=== PATIENT | male | born 1965 | race Caucasian/White ===

== ENCOUNTER → 2017-01-15 | Outpatient (CLI) | payer OTHER ==
--- NOTE | 2017-01-27 08:55 | SLEEPCENT ---
DATE OF STUDY: 01/15/2017 REFERRING PROVIDER: Dr. Mitesh Cardenas INTERPRETATION: Nocturnal polysomnography was performed for the evaluation of sleep apnea syndrome symptoms in this patient with excessive daytime sleepiness, insomnia, snoring, observed apnea, gasping respirations, morning headaches, and nonrestorative sleep. A total of 8 hours and 11 minutes of data was reviewed with a 169 minutes of sleep identified. Sleep latency was 53 minutes. No slow wave sleep or rapid eye movement (REM) sleep was identified. Sleep efficiency was markedly decreased at 34.8%. Electrocardiogram (EKG) showed normal sinus rhythm with an average heart rate of 64 beats per minute. Speeding and slowing was noted surrounding some respiratory events. There were 86 respiratory events identified of 10 seconds in duration or longer for an apnea-hypopnea index (AHI) of 30.5. The events were predominantly obstructive hypopneas/apneas. RERA index was 5, giving a total respiratory disturbance index (RDI) of 35.5. Mean oxygen saturation for the study was 93% with a minimum recorded value of 88%. Arousal index was 26.6 with approximately half breathing related. Periodic limb movement index was elevated at 32.7. IMPRESSION: 1. Obstructive sleep apnea, severe. 2. Periodic limb movements, moderate. 3. Significant sleep inefficiency. RECOMMENDATIONS: Recommend the patient return to the sleep disorder center for determination of pressure therapy. Pending that intervention, alcohol and sedative usage should be avoided and care should be taken when operating motor vehicles.
== END ==
LOC: M SLEEP 19:20
PROVIDERS: ATTEND Internal Medicine Pulmonary Disease
DX: G47.33 Obstructive sleep apnea (adult) (pediatric) (principal); G47.61 Periodic limb movement disorder

== ENCOUNTER → 2017-02-19 | Outpatient (CLI) | payer OTHER | LOC: M SLEEP 19:47 | DX: G47.33 Obstructive sleep apnea (adult) (pediatric) (principal) ==

== ENCOUNTER → 2021-11-26 | Outpatient (CLI) | payer OTHER ==
[2021-11-26 10:13] LABS: BASO % 0.8 % (0.0-1.0); EOS # 0.1 10^3/uL (0.0-0.5); EOS % 2.6 % (0.0-3.0); HEMATOCRIT 45.3 % (42.0-52.0); HEMOGLOBIN 16.1 g/dl (13.5-17.5); LYMPH # 1.8 10^3/uL (1.5-5.0); MEAN CORPUSCULAR HEMOGLOBIN 32.6 pg (27.0-33.0); MEAN CORPUSCULAR HGB CONC 35.5 g/dl (32.0-36.5); MEAN CORPUSCULAR VOLUME 91.7 fl (80.0-96.0); MONO # 0.5 10^3/uL (0.0-0.8); MONO % 9.8 % (2.0-8.0); NEUTROPHILS # 2.5 10^3/uL (1.5-8.5); NEUTROPHILS % 50.4 % (36.0-66.0); PLATELET COUNT, AUTOMATED 141 10^3/uL (150-450); RED BLOOD COUNT 4.94 10^6/uL (4.30-6.10)
[2021-11-26 10:24] LABS: INR 0.93; PARTIAL THROMBOPLASTIN TIME 27.5 SECONDS (24.8-34.2); PROTHROMBIN TIME 12.7 SECONDS (12.5-14.5)
[2021-11-26 10:54] LABS: ALBUMIN 4.1 GM/DL (3.2-5.2); ALT/SGPT 201 U/L (12-78); BILIRUBIN,TOTAL 1.3 MG/DL (0.2-1.0); BLOOD UREA NITROGEN 18 MG/DL (7-18); C REACTIVE PROTEIN QUANTITATIV 0.48 MG/DL (0.00-0.30); CALCIUM LEVEL 9.8 MG/DL (8.5-10.1); CARBON DIOXIDE LEVEL 31 MEQ/L (21-32); CHLORIDE LEVEL 102 MEQ/L (98-107); CREATININE FOR GFR 1.23 MG/DL (0.70-1.30); FERRITIN 818 NG/ML (26-388); GLOMERULAR FILTRATION RATE > 60.0 (>56); GLUCOSE, FASTING 101 MG/DL (70-100); IRON (FE) 198 UG/DL (65-175); PERCENT SATURATION 58.9 % (19.7-50.0); POTASSIUM SERUM 3.7 MEQ/L (3.5-5.1); SODIUM LEVEL 137 MEQ/L (136-145); TOTAL IRON BINDING CAPACITY 336 UG/DL (250-450); TOTAL PROTEIN 7.6 GM/DL (6.4-8.2)
[2021-11-27 10:11] LABS: ANTINUCLEAR ANTIBODIES DIRECT Negative (Negative)
== END ==
LOC: M LAB 09:14
PROVIDERS: ATTEND Internal Medicine Gastroenterology
DX: R94.5 Abnormal results of liver function studies (principal)

== ENCOUNTER → 2021-12-15 | Outpatient (CLI) | payer OTHER | LOC: M RAD 10:19 | PROVIDERS: ATTEND Internal Medicine Gastroenterology | DX: R94.5 Abnormal results of liver function studies (principal) ==

== ENCOUNTER 2024-12-05 12:16 | Emergency (ER) | payer OTHER ==
[~2024-12-05] VITALS: Ht 182.9 cm; Wt 123.3 kg
[2024-12-05] MEDS ORDERED: HYDR1CAP25 PO (12:24)
[2024-12-05] MEDS ORDERED: DULO1CAP6 PO (12:24)
[2024-12-05] MEDS ORDERED: BUSP15TA48 PO (12:24)
[2024-12-05] MEDS ORDERED: TEST200I14 IM (12:24)
[2024-12-05] MEDS ORDERED: LOSA25TA13 PO (12:24)
[2024-12-05] MEDS ORDERED: ISOVUE-370 76% 100 ML VIAL As Ordered ONE (14:52)
[2024-12-05] MEDS: ONDANSETRON 4MG/2ML VIAL IV ONE (15:35)
[2024-12-05] MEDS: MORPHINE 2 MG/ML 1 ML VIAL IV ONE (15:36)
[2024-12-05 16:47] VITALS: BP 162/79; TEMP 97.3
[2024-12-05] MEDS: CLINDAMYCIN 900 MG in IV 1 EA IV ONE (16:50)
[2024-12-05 16:53] VITALS: O2SAT 97
== END 2024-12-05 16:54 | disposition short-term general hospital (02) ==
LOC: M ED 12:16
DX: S02.401A Maxillary fracture, unspecified side, initial encounter for closed fracture (principal); W22.8XXA Striking against or struck by other objects, initial encounter; Y92.009 Unspecified place in unspecified non-institutional (private) residence as the place of occurrence of the external cause; Y93.9 Activity, unspecified; Y99.9 Unspecified external cause status; F32.9 Major depressive disorder, single episode, unspecified; M47.812 Spondylosis without myelopathy or radiculopathy, cervical region; Z88.0 Allergy status to penicillin
CPT/HCPCS: 70450; 70486; 70498; 72125; 80047; 96365; 96375; 99285; J0737; J2405; Q9967